=== PATIENT | male | born 1960 | race Two or more races ===

== ENCOUNTER 2023-03-26 23:38 | Emergency (ER) | payer MEDICAID ==
[~2023-03-26] VITALS: Ht 172.7 cm; Wt 70.5 kg
[2023-03-26 23:55] VITALS: BP 128/90; PULSE 73; RESP 16; O2SAT 97
== END 2023-03-27 00:16 | disposition left against medical advice (07) ==
LOC: ER 23:38
DX: H57.12 Ocular pain, left eye (principal); Z53.21 Procedure and treatment not carried out due to patient leaving prior to being seen by health care provider

== ENCOUNTER → 2023-08-04 | Outpatient (CLI) | payer MEDICAID ==
[~2023-08-04] VITALS: Ht 172.7 cm; Wt 72.6 kg
== END | disposition home or self-care (01) ==
LOC: Rad HDHVI 13:28
PROVIDERS: ATTEND Internal Medicine Cardiovascular Disease
DX: I10 Essential (primary) hypertension (principal); Z82.49 Family history of ischemic heart disease and other diseases of the circulatory system; Z79.899 Other long term (current) drug therapy
CPT/HCPCS: 78452; 93017; 96374; A9500

== ENCOUNTER → 2023-08-09 | Outpatient (CLI) | payer MEDICAID | END | disposition home or self-care (01) | LOC: Rad HDHVI 16:02 | PROVIDERS: ATTEND Internal Medicine Cardiovascular Disease | DX: I10 Essential (primary) hypertension (principal) | CPT/HCPCS: 93306 ==